=== PATIENT | male | born 1960 | race Two or more races ===

== ENCOUNTER 2025-05-28 14:18 | Emergency (ER) | payer SELFPAY ==
--- NOTE | 2025-05-28 14:28 | ED.GENMED ---
History of Present Illness
General
Chief Complaint: CODE
Source: ambulance crew
Exam Limitations: clinical condition
Time Seen by Provider: 05/28/25 14:23
Nursing documentation reviewed up to this point in time: agreed with
History of Present Illness
History of Present Illness:
64-year-old male with unknown medical history presents to the ER via EMS in cardiac arrest. No prior visits here in the emergency room and no prior history available on initial presentation. Per EMS report they received a call that patient was
found down next to his vehicle and that police were called. Unknown downtime. Apparently police started CPR and EMS was dispatched and arrived a few minutes later and initiated ACLS protocol. Patient was intubated in the field. He received
roughly 30 minutes of ACLS in the field including 5 rounds of epinephrine. His initial rhythm was asystole and he was persistently asystole in the field for EMS. EMS did note some bloody/frothy secretions. No overt signs of trauma.
UPDATE
I spoke to the patient's brother Andres on the phone ([phone]). Apparently patient generally unhealthy he has some heart conditions, diabetes and lung issues and has some chronic shortness of breath. Apparently brother spoke to him yesterday and
he was complaining of being more short of breath and that he had missed his water pill for a few days but was restarting it with a new prescription. Unfortunately the patient's mother within the past year, no other family.
Review of Systems
Review of Systems
Unable to obtain full review of systems at this time due to: due to acuity
All Other Systems: Not applicable
Phy Exam
Physical Exam
Physical Exam:
General: Unresponsive with CPR in progress
Head: Normocephalic, atraumatic
Eyes: Conjunctiva normal, pupils fixed and dilated
Throat: Intubated
Neck: Trachea midline
Lungs: Bilateral breath sounds present
Heart: Pulseless, CPR in progress
Abd: Mildly distended
Neuro: Unresponsive
Skin: Cold and mottled
Extremities: Cold to the touch, no overt signs of trauma, right pretibial IO in place
Scores
Heart Failure Risk
Heart Failure Risk Score: Not Applicable
Heart Score for Chest Pain Patients
STEMI patient?: Not applicable
Withdrawal Assessment of Alcohol
Withdrawal Assessment Completed?: Not applicable
MDM/Problems Addressed
Differential Diagnosis Includes:
Acute OH, massive PE, traumatic head injury/subarachnoid, sudden arrhythmia, toxicologic/overdose
MDM/Problems Addressed:
64-year-old male presents to the emergency department in cardiac arrest. Unknown downtime, was apparently found next to his vehicle. He did have his phone on his person and it looks like there was an outgoing call at around noon. He was
apparently discovered next to his vehicle and police initiated CPR at 140 EMS arrived 3 minutes later per their report and initiated ACLS protocols. He was coded in the field for roughly 30 minutes and arrived to the ER at 1411. He was given
epinephrine x 5 in the field and received epinephrine on arrival here in the ER. He was given bicarb and arrival in the ER. His initial presenting rhythm in the ER was asystole. He received an additional 10 minutes of ACLS here, PEA asystole.
[id number] ultrasound showed no organized cardiac activity and at that point after 40 minutes of resuscitation and unknown downtime without return of spontaneous circulation patient was pronounced at 14:21. Multiple calls placed to locate family
using his cell phone contacts as a guide�I was able to speak to his brother Andres to provide update. Will discuss with medical assisting program director.
Discussed case with medical assisting program director�he is released by ME. Nurse contacted [employer]. Family to contact home.
*Pulse Oximetry
Patient hypoxic: not evaluated (Pulseless on arrival)
*Critical Care Note
Total Time (30-74mins, 75-104mins- exclusive of procedures): Not Applicable
Data Reviewed
Source: family and ambulance crew
ED Attending Note
-
Portions of this chart may have been created with voice recognition software.� Occasional wrong word or��sound alike� substitutions may have occurred due to the inherent limitations of voice recognition software.
Discharge Plan
Departure
Patient Disposition:
Date of Disposition: 05/28/25
Time of Disposition: 14:21
Discharge Problem:
Cardiac arrest
Interventions
Interventions:
*General Assessment Last Done: 05/28/25 14:20
*Neglect/Abuse Screening Last Done: 05/28/25 14:20
*ED COVID-19 Vaccine History Last Done: 05/28/25 14:20
*ED Influenza Vaccine History Last Done: 05/28/25 14:20
*Risk Screen - Suicide (C-SSRS) Last Done: 05/28/25 14:20
ED- Cardiac Assessment Last Done: 05/28/25 14:21
ED- Pulmonary Assessment Last Done: 05/28/25 14:21
Discharge Date and Time
Print Language: KHMER
Pronouncement of
-
Called to see patient to pronounce.
No spontaneous heart tones or respirations noted.
Patient not responsive to verbal stimuli.
Patient is pronounced .
Time of : 14:21
Date of : 05/28/25
Cause of : cardiac arrest
Family Notified: Yes
--- NOTE | 2025-05-28 16:20 | EDRN ---
Pt released by ME per Poorn[facility] Hayes leg IO removed as well as ET tube. Post mortem care provided and transported to [facility] with belongings. Pts brother will be here shortly and will see pt in the morgue and get his belongings.
== END 2025-05-28 16:20 | disposition expired ==
LOC: EMR 14:18
PROVIDERS: EMERGENCY PHYSICIAN Emergency Medicine
DX: I46.9 Cardiac arrest, cause unspecified (principal); E11.9 Type 2 diabetes mellitus without complications
CPT/HCPCS: 99285; 92950